=== PATIENT | male | born 1960 | race Caucasian/White ===

== ENCOUNTER 2019-10-17 21:00 | Inpatient (IN) | payer OTHER ==
[~2019-10-17] VITALS: Ht 182.9 cm; Wt 92.3 kg
[2019-10-17] MEDS ORDERED: EPTIFIBATIDE INJ (2MG/ML) 10ML VIAL IV ONE (21:01)
[2019-10-17] MEDS ORDERED: NICARDIPINE 25 MG/10 ML VIAL IV ONE (21:03)
[2019-10-17] MEDS ORDERED: IOHEXOL 350 MG/ML 100ML IJ ONE (21:15)
[2019-10-17] MEDS ORDERED: MIDAZOLAM HCL 1MG/1ML-2 ML VIAL ONE (21:21)
[2019-10-17] MEDS ORDERED: fentaNYL CITRATE 100 MCG/2 ML VL ONE (21:21)
[2019-10-17] MEDS ORDERED: TICAGRELOR 90 MG TAB ONE (21:29)
[2019-10-17] MEDS ORDERED: LIDOCAINE 2%HCL (LOCAL ANESTH.) INJ 20ML MDV ONE (21:37)
[2019-10-17] MEDS ORDERED: MORPHINE SULF INJ 2 MG/ML SYRINGE 1ML IV PRN (22:45)
[2019-10-17] MEDS ORDERED: NITROGLYCERIN 0.4 MG SL TAB SL PRN (22:45)
[2019-10-17] MEDS ORDERED: ACETAMINOPHEN 500 MG TAB PO PRN (22:45)
[2019-10-17 23:15] VITALS: BP 134/74
--- NOTE | 2019-10-17 23:15 | NUR ---
Report received from ELISEO MORFIN. ASUNCION GONSALVES brought to ROOM 234 following Cardiac catheterization, on steamfitter apprentice and portable oxygen. Patient transferred to unit bed, connected to front desk monitor #1, SINUS HOWARD AT 55BPM. Catheterization site assessed for any bleeding, redness or swelling. RIGHT GROIN GAUZE AND TEGADERM IN PLACE. Pedal pulses on affected leg assessed for positive tissue perfusion. STRONG PULSES TO BILATERAL DORSALIS PEDIS PULSES.Patient instructed on need to notify staff immediately if any pain, burning or wetness to site, and any lower back pain. Patient educated on new cardiac medications. All questions and concerns addressed, patient verbalized understanding of all education and instruction. See notes for any further.
[2019-10-17 23:30] VITALS: BP 139/80
[2019-10-17 23:45] VITALS: BP 140/82
[2019-10-18] VITALS (10 sets, daily range): BP systolic 127–155; BP diastolic 69–90
--- NOTE | 2019-10-18 00:15 | NUR ---
[facility] RECEIVED CALL FROM YOSELYN CEDEÑO FROM THE [facility]. PATIENTS DAUGHTER PAYTON IS IN THE AIR FORCE AND THE [facility] CALLED TO OBTAIN BASIC INFORMATION TO INFORM PATIENTS DAUGHTER OF STATUS OF PATIENT. SPOKE WITH PATIENT TO VERIFY THAT IT IS OK TO SPEAK WITH [facility]. PATIENT GAVE PERMISSION TO GIVE [facility] INFORMATION. UPDATED [facility] ON CURRENT STATUS OF PATIENT. CASE #[id number] FOR REFERENCE.
[2019-10-18] MEDS ORDERED: ATOR40TA52 PO (00:19)
[2019-10-18] MEDS: SOD CHL 0.45% 1,000 ML IV SCH ×2 (01:28→14:31)
[2019-10-18] MEDS: SODIUM CHLOR 0.9% PF (SALINE LOCK) 10ML VIAL/SYR IV SCH ×3 (05:36→21:35)
[2019-10-18 06:03] LABS: Basophils # (auto) 0.1 uL; Basophils % (auto) 0.4 % (0.0-2.0); Eosinophils # (auto) 0.1 uL; Eosinophils % (auto) 0.5 % (0.0-7.0); Hematocrit 48.8 % (41.0-53.0); Hemoglobin 16.6 g/dL (13.5-17.5); Lymphocytes # (auto) 1.7 uL; Lymphocytes % (auto) 12.4 % (10.0-50.0); Mean Corpuscular Hemoglobin 31.2 pg (28.0-32.0); Mean Corpuscular Hgb Conc. 34.1 g/dL (32.0-36.0); Mean Corpuscular Volume 91.5 fL (80.0-100.0); Monocytes % (auto) 7.2 % (0.0-12.0); Neutrophils # (auto) 10.8 uL; Neutrophils % (auto) 79.5 % (37.0-80.0); Nucleated Red Blood Cells % 0.1 %; Platelet Count (auto) 230 10^3/uL (140-450); Red Blood Cells 5.34 10^6/uL (4.5-5.90); Red Cell Distribution Width 14.1 % (11.8-14.3); White Blood Cell 13.6 10^3/uL (4.4-10.8)
[2019-10-18 06:22] LABS: Potassium 3.9 mmol/L (3.5-5.1)
[2019-10-18 06:35] LABS: Albumin 3.9 g/dL (3.4-5.0); BUN/Creatinine Ratio 17.5; Bilirubin, Total 0.6 mg/dL (0.2-1.0); Total Protein 7.1 g/dL (6.4-8.2)
--- NOTE | 2019-10-18 06:44 | NUR ---
CRITICAL TROPONIN RECEIVED CRITICAL TROP LEVEL OF 27.2 FROM JOSE IN LAB SHIRLEY SANTOYO MD
--- NOTE | 2019-10-18 06:48 | NUR ---
MADE AWARE CALLED AND SPOKE WITH REGARDING CRITICAL TROPONIN LEVEL OF 27.2. NO NEW ORDERS AT THIS TIME. WILL CONTINUE TO MONITOR CLOSELY PT STABLE, ASYMPTOMATIC.
--- NOTE | 2019-10-18 06:54 | NUR ---
CLOSING PATIENT RESTING COMFORTABLY IN BED, NO S/S OF DISTRESS. DRESSING TO RIGHT GROIN C/D/I THROUGHOUT SHIFT. POST FOOD TECHNOLOGIST VITALS DONE-SEE VITALS INTERVENTION. CALL LIGHT WITHIN REACH. WILL ENDORSE CARE TO AM SHIFT RN.
--- NOTE | 2019-10-18 07:40 | NUR ---
Opening Shift Note Assumed care of patient, awake and alert. No S/S of distress/SOB or pain. Instructed on POC and to call for assist PRN, will continue to monitor for changes Q1hr and PRN.
--- NOTE | 2019-10-18 10:00 | NUR ---
WAS IN TO SEE PT AND MD LEFT NEW ORDERS.
[2019-10-18] MEDS: NICOTINE 14 MG/24HR TOPICAL PATCH TD SCH (10:11)
[2019-10-18] MEDS: TICAGRELOR 90 MG TAB PO SCH ×2 (10:14→21:33)
[2019-10-18] MEDS: ASPirin 81 mg TAB PO SCH (10:14)
[2019-10-18] MEDS: METOPROLOL TARTRATE 25 MG TAB PO SCH ×2 (10:14→21:35)
--- NOTE | 2019-10-18 12:00 | NUR ---
DR. MANNING CALLED AND STATED THAT SHE PHONED DR. Isabel CLARKE AND DR. CLARKE WANTED PT TO STAY ONE MORE DAY FOR MONITORING. PT AND HIS FAMILY NOTIFIED OF SAME.
--- NOTE | 2019-10-18 15:34 | NUR ---
PHONED DR. MANNING ABOUT TROPONIN 13.70 AND TRENDING DOWN. STATED THAT THERE IS NO NEED TO PHONE NEXT TROPONIN RESULT SINCE IT IS TRENDING DOWN.
--- NOTE | 2019-10-18 19:30 | NUR ---
OPENING NOTE REPORT RECEIVED FROM DAY SHIFT RN PATIENT IS A/OX4 RESTING COMFORTABLY IN BED, NO S/S OF DISTRESS. DRESSING TO RIGHT GROIN IS C/D/I, NO SIGNS OF ACTIVE BLEED OR HEMATOMA. POC DISCUSSED AND ALL QUESTIONS ANSWERED. WILL MONITOR Q1H PRN THROUGHOUT SHIFT, CALL LIGHT WITHIN REACH.
[2019-10-18] MEDS ORDERED: ATORVASTATIN 20 MG TAB PO SCH (22:00)
[2019-10-19 05:00] VITALS: BP 135/72
[2019-10-19] MEDS: SOD CHL 0.45% 1,000 ML IV SCH (05:10)
[2019-10-19] MEDS: SODIUM CHLOR 0.9% PF (SALINE LOCK) 10ML VIAL/SYR IV SCH (05:35)
--- NOTE | 2019-10-19 06:52 | NUR ---
CLOSING PATIENT IS RESTING IN BED. NO S/S OF DISTRESS. RIGHT GROIN INCISION SITE DRESSING IS C/D/I. CALL LIGHT WITHIN REACH. WILL ENDORSE CARE TO AM SHIFT RN.
[2019-10-19 07:08] LABS: Basophils # (auto) 0 uL; Basophils % (auto) 0.3 % (0.0-2.0); Eosinophils # (auto) 0.1 uL; Hematocrit 48.1 % (41.0-53.0); Hemoglobin 16.5 g/dL (13.5-17.5); Lymphocytes # (auto) 2.3 uL; Lymphocytes % (auto) 19.8 % (10.0-50.0); Mean Corpuscular Hemoglobin 31.8 pg (28.0-32.0); Mean Corpuscular Hgb Conc. 34.3 g/dL (32.0-36.0); Mean Corpuscular Volume 92.5 fL (80.0-100.0); Monocytes # (auto) 1.3 uL; Monocytes % (auto) 11.1 % (0.0-12.0); Neutrophils # (auto) 7.9 uL; Neutrophils % (auto) 67.8 % (37.0-80.0); Platelet Count (auto) 203 10^3/uL (140-450); Red Cell Distribution Width 14.1 % (11.8-14.3); White Blood Cell 11.6 10^3/uL (4.4-10.8)
[2019-10-19 07:29] LABS: Calcium 8.5 mg/dL (8.5-10.1); Magnesium 2.1 mg/dL (1.6-2.6); Potassium 4.1 mmol/L (3.5-5.1)
[2019-10-19 07:35] LABS: BUN/Creatinine Ratio 13.6
--- NOTE | 2019-10-19 07:38 | NUR ---
LAB PHONED ABOUT TROPONIN RESULT 11.1. RESULT WAS TRENDING DOWN AND MD AWARE AND GAVE INSTRUCTION BEFORE NOT TO PHONE MD FOR RESULT.
[2019-10-19 08:00] VITALS: BP 126/70
[2019-10-19 09:00] VITALS: BP 126/70
[2019-10-19] MEDS: NICOTINE 14 MG/24HR TOPICAL PATCH TD SCH (10:13)
[2019-10-19] MEDS: TICAGRELOR 90 MG TAB PO SCH (10:14)
[2019-10-19] MEDS: ASPirin 81 mg TAB PO SCH (10:14)
[2019-10-19] MEDS: METOPROLOL TARTRATE 25 MG TAB PO SCH (10:15)
--- NOTE | 2019-10-19 11:10 | NUR ---
DR. MANNING WAS IN TO SEE PT AND LEFT ORDER FOR PT'S DISCHARGE AND PT AND HIS FAMILY WERE AWARE OF ORDER.
[2019-10-19] MEDS ORDERED: TICA90TA PO (11:41)
[2019-10-19] MEDS ORDERED: ASPI81CH43 PO (11:41)
[2019-10-19] MEDS ORDERED: NIC21P TOP (11:41)
[2019-10-19] MEDS ORDERED: MET25T PO (11:41)
[2019-10-19 11:59] VITALS: BP 126/70
[2019-10-19 12:50] VITALS: BP 111/68
--- NOTE | 2019-10-19 13:40 | NUR ---
DR. GONZALEZ WAS IN TO SEE PT. ABLE TO CONTACT DR.M. CLARKE AND GOT OK FROM DR. CLARKE FOR PT'S DISCHARGE HOME TODAY.
== END 2019-10-19 14:15 | disposition home or self-care (01) | DRG 246 ==
LOC: CATH 1 21:00 → EDSTATUS 21:20 → TELE-EAST 23:08
PROVIDERS: ADMIT Specialist; ATTEND Internal Medicine
PROC: 027034Z Dilation of Coronary Artery, One Artery with Drug-eluting Intraluminal Device, Percutaneous Approach (ICD-10-PCS; principal; 2019-10-17)
PROC: 02C03ZZ Extirpation of Matter from Coronary Artery, One Artery, Percutaneous Approach (ICD-10-PCS; 2019-10-17)
PROC: B241ZZ3 Ultrasonography of Multiple Coronary Arteries, Intravascular (ICD-10-PCS; 2019-10-17)
PROC: 3E033PZ Introduction of Platelet Inhibitor into Peripheral Vein, Percutaneous Approach (ICD-10-PCS; 2019-10-17)
PROC: 4A023N7 Measurement of Cardiac Sampling and Pressure, Left Heart, Percutaneous Approach (ICD-10-PCS; 2019-10-17)
PROC: B2111ZZ Fluoroscopy of Multiple Coronary Arteries using Low Osmolar Contrast (ICD-10-PCS; 2019-10-17)
PROC: B2151ZZ Fluoroscopy of Left Heart using Low Osmolar Contrast (ICD-10-PCS; 2019-10-17)
PROC: B41F1ZZ Fluoroscopy of Right Lower Extremity Arteries using Low Osmolar Contrast (ICD-10-PCS; 2019-10-17)
PROC: B41C1ZZ Fluoroscopy of Pelvic Arteries using Low Osmolar Contrast (ICD-10-PCS; 2019-10-17)
PROC: 03HY32Z Insertion of Monitoring Device into Upper Artery, Percutaneous Approach (ICD-10-PCS; 2019-10-17)
DX: I21.09 ST elevation (STEMI) myocardial infarction involving other coronary artery of anterior wall (principal); I50.41 Acute combined systolic (congestive) and diastolic (congestive) heart failure; R65.10 Systemic inflammatory response syndrome (SIRS) of non-infectious origin without acute organ dysfunction; E78.5 Hyperlipidemia, unspecified; E78.00 Pure hypercholesterolemia, unspecified; K21.9 Gastro-esophageal reflux disease without esophagitis; J44.9 Chronic obstructive pulmonary disease, unspecified; E86.1 Hypovolemia; I25.110 Atherosclerotic heart disease of native coronary artery with unstable angina pectoris; F17.210 Nicotine dependence, cigarettes, uncomplicated; E66.09 Other obesity due to excess calories; Z82.49 Family history of ischemic heart disease and other diseases of the circulatory system; Z68.27 Body mass index [BMI] 27.0-27.9, adult; Z71.6 Tobacco abuse counseling; Z71.3 Dietary counseling and surveillance; Z79.899 Other long term (current) drug therapy
CPT/HCPCS: 36415; 71045; 80048; 80053; 80061; 83036; 83735; 84484; 85025; 93005; 93306; 99152; 99153; C1874; C1887; G0378; J2250